=== PATIENT | female | born 1950 | race Two or more races ===

== ENCOUNTER 2024-08-28 18:57 | Emergency (ER) | payer OTHER, SELFPAY ==
--- NOTE | ~2024-08-28 | XR_ITS ---
EXAMINATION: XR knee LT 3V DATE: 08/28/2024 20:15 INDICATION: Left knee trauma TECHNIQUE: Anteroposterior, 2 oblique and crosstable lateral views of the left knee were obtained COMPARISON: None. FINDINGS: Alignment is normal. No fracture. Prominent chondrocalcinosis at the menisci and the medial and late ral compartments. Severe joint space narrowing at the patellofemoral compartment. No joint space narr owing at the medial lateral compartments although sensitivity can be decreased on nonweightbearing im aging. No joint effusion/layering lipohemarthrosis. Soft tissues are unremarkable. IMPRESSION: 1. No left knee joint effusion or acute osseous abnormality. 2. Medial and lateral meniscal chondrocalcinosis and tricompartmental osteoarthritis severe in the pa tellofemoral compartment and at least mild in the medial lateral compartments. Reviewed, dictated and finalized at location A. IMPRESSION: 1. No left knee joint effusion or acute osseous abnormality. 2. Medial and lateral meniscal chondrocalcinosis and tricompartmental osteoarth ritis severe in the patellofemoral compartment and at least mild in the medial lateral compartments.
[2024-08-28 19:34] VITALS: BP 130/86; PULSE 82; RESP 16; TEMP 36.7; O2SAT 97
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
[2024-08-28] MEDS: NAPROXEN 500 MG TABLET PO (21:14)
[2024-08-28] MEDS: FAMOTIDINE 20 MG TABLET PO (21:14)
[2024-08-28 21:20] VITALS: BP 131/87; PULSE 72; RESP 15; O2SAT 99
== END 2024-08-28 21:20 | disposition home or self-care (01) ==
PROVIDERS: Emergency Provider Emergency Medicine
DX: S80.02XA Contusion of left knee, initial encounter (principal); V49.50XA Passenger injured in collision with unspecified motor vehicles in traffic accident, initial encounter
CPT/HCPCS: 73562; 99283; A9270